=== PATIENT | female | born 1960 | race Caucasian/White ===

== ENCOUNTER → 2018-02-24 | Outpatient (CLI) | payer OTHER ==
--- NOTE | 2018-02-24 16:41 | US ---
EXAMINATION TYPE: US pelvic complete DATE OF EXAM: 02/24/2018 COMPARISON: US from 2011 CLINICAL HISTORY: N85.2 Bulky/ Enlarged Uterus. TECHNIQUE: Transabdominal (TA). Date of LMP: post menopausal EXAM MEASUREMENTS: Uterus: 10.5 x 3.9 x 5.6 cm Endometrial Stripe: 0.5 cm Right Ovary: not identified cm Left Ovary: 1.8 x 1.5 x 0.9 cm 1. Uterus: Anteverted at least one fibroid fundally that measures 2.6 x 2.2 x 2.3 cm. 2. Endometrium: wnl 3. Right Ovary: not identified 4. Left Ovary: wnl 5. Bilateral Adnexa: wnl 6. Posterior cul-de-sac: no free fluid Urinary bladder is sonolucent. Posterior wall is normal. IMPRESSION: 1. Uterine fibroid.
== END | disposition home or self-care (01) ==
LOC: RADUSWWP 16:08
PROVIDERS: ATTEND Internal Medicine
DX: D25.9 Leiomyoma of uterus, unspecified (principal)
CPT/HCPCS: 76856

== ENCOUNTER 2018-03-06 08:25 | Day surgery (SDC) | payer OTHER ==
[2018-03-04 15:25] VITALS: BMI 32.0
[~2018-03-06 08:25] MED LIST: LACTATED RINGERS 1,000 ML IV SCH
[2018-03-06 09:02] VITALS: RESP 16; TEMP 97
[2018-03-06] MEDS ORDERED: LIDOCAINE 1% 20 ML VIAL (10MG/ML) FOR IV START INTRADERMA ONE (09:02)
[2018-03-06] MEDS ORDERED: PROPOFOL 10 MG/ML 20 ML VIAL IV ONE (09:36)
--- NOTE | 2018-03-06 10:07 | P.PCN ---
Date of Procedure: 03/06/18 (IV normal) Procedure(s) Performed: Brief history: Patient is a pleasant 27-year-old white female, scheduled for an elective upper endoscopy as well as colonoscopy as a part of evaluation of value should of intermittent dysphagia to liquids for the last 6 months duration. She has family history of esophageal achalasia diagnosed in her sister and father. He is also scheduled for a colonoscopy for screening for colorectal neoplasia. Procedure performed: Esophagogastroduodenoscopy with biopsy Colonoscopy with biopsy Preoperative diagnosis: Intermittent dysphagia to liquids Screening for colon cancer Anesthesia: MAC Procedure: After informed consent was obtained from the patient was brought into the endoscopy unit and IV sedation was administered by anesthesia under continuous monitoring. Initially upper endoscopy was done. The Olympus GF 160 video endoscope was inserted inserted into the mouth and esophagus intubated without any difficulty and was gradually advanced into the esophagus. The lower esophageal sphincter was very tight and I was able to advance the scope with moderate pressure into the stomach raising the suspicion for esophageal achalasia. The scope was advanced into the stomach and duodenum and carefully examined. The bulb and second part of the duodenum appeared normal. The scope was then withdrawn into the stomach adequately insufflated with air and upon careful examination the antrum and body, cardia and fundus appeared normal. The scope was then withdrawn into the esophagus. The GE junction was located at 37 cm to the incisors. It appeared regular with no erythema erosions or ulcerations. Rest of the esophagus appeared normal. Once again the lower esophageal sphincter was very tight but the esophagus itself was not dilated. Biopsies were done from the esophagus. Patient tolerated the procedure well. At this time the patient continued to remain sedation. Initial digital rectal examination was normal. Olympus CF 160 video colonoscope was then inserted into the rectum and gradually advanced to the cecum without any difficulty. Careful examination was performed as the scope was gradually being withdrawn. The prep was excellent. The cecum, ascending colon, transverse colon, descending colon, sigmoid colon and rectum appeared normal. 5 mm rectal polyp status post removal by biopsy. Moderate sigmoid diverticula seen. Retroflexion was performed in the rectum and no lesions were noted. Patient tolerated the procedure well. Impression: 1. Upper endoscopy revealed diffuse gastritis in the antrum and tight lower esophageal sphincter suspicious for early esophageal achalasia 2. Colonoscopy revealed 5 mm rectal polyp that was removed by biopsy and moderate sigmoid diverticulosis. Recommendations: Findings of this examination were discussed with the patient as well as her family. She was advised to follow with the biopsy results. If the biopsy shows a tubular adenoma she can have a repeat colonoscopy in 5 years. In regards to the dysphagia I suggested that she follow up in office once she has worsening symptoms ,at which time she will be investigated further with an esophageal manometry to evaluate for esophageal achalasia.
[2018-03-06 10:27] VITALS: BP 137/83; PULSE 83
--- NOTE | 2018-03-11 06:06 | CDI ---
Date: 03/11/18 CDS/Cloth Mender Name: Erica Landrum Phone: If any questions, call Carie Bradford Cost And Sales Record Supervisor at [phone] Patient Name: Della Mendoza Admit Date: 03/06/18 Discharge Date: 03/06/18 ATTENTION: The [facility] Coding Staff appreciate your assistance in clarifying documentation. Please respond to the clarification below the line at the bottom and electronically sign. The [facility] Coding staff will review the response and follow-up if needed. Please note: Queries are made part of the Legal Health Record. If you have any questions, please contact the Cost And Sales Record Supervisor. Dear Dr. Kim, Please provide clarification as to the method used to remove the rectal polyp. Please clarify if the method was hot or code biopsy. Thank you for your kind consideration. Polyp was removed by cold biopsy MTDD
== END 2018-03-06 11:00 | disposition home or self-care (01) ==
LOC: ORWHC2ENDO 08:25
PROVIDERS: ATTEND Internal Medicine Gastroenterology
DX: Z12.11 Encounter for screening for malignant neoplasm of colon (principal); D12.8 Benign neoplasm of rectum; K57.30 Diverticulosis of large intestine without perforation or abscess without bleeding; K29.50 Unspecified chronic gastritis without bleeding; K22.8 Other specified diseases of esophagus; K20.9 Esophagitis, unspecified; Z83.79 Family history of other diseases of the digestive system; I10 Essential (primary) hypertension; E78.5 Hyperlipidemia, unspecified; Z79.82 Long term (current) use of aspirin; Z79.899 Other long term (current) drug therapy
CPT/HCPCS: 88305; 88342; 45380; 43239; J2704